=== PATIENT | female | born 1985 | race Caucasian/White ===

== ENCOUNTER 2020-06-04 12:10 | Outpatient (REF) | payer OTHER, SELFPAY ==
[2020-06-04 12:28] LABS: COVID-19 Test Negative (Negative)
== END 2020-06-04 12:11 | disposition home or self-care (01) ==
LOC: HO.EMPCOV 12:10
PROVIDERS: Visit Provider Internal Medicine
DX: Z20.822 Contact with and (suspected) exposure to COVID-19 (principal)
CPT/HCPCS: 36415; 87635; C9803

== ENCOUNTER 2020-06-07 13:24 | Outpatient (REF) | payer OTHER, SELFPAY ==
[2020-06-07 13:45] LABS: COVID-19 Test Negative (Negative)
== END 2020-06-07 13:25 | disposition home or self-care (01) ==
LOC: HO.EMPCOV 13:24
PROVIDERS: Visit Provider Internal Medicine
DX: Z20.822 Contact with and (suspected) exposure to COVID-19 (principal)
CPT/HCPCS: 36415; 87635; C9803

== ENCOUNTER → 2022-02-15 09:16 | Outpatient (RCR) | payer OTHER, SELFPAY ==
[2020-03-10 07:31] LABS: COVID-19 Test Negative (Negative)
[2020-03-17 07:32] LABS: COVID-19 Test Negative (Negative); IDNOW Serial# 55D5AD1C
[2020-03-22 08:29] LABS: COVID-19 Test Negative (Negative)
[2020-03-30 07:43] LABS: COVID-19 Test Negative (Negative)
[2020-04-06 07:33] LABS: COVID-19 Test Negative (Negative); IDNOW Serial# 55D5AD1C
[2020-04-16 13:19] LABS: SARS-COV-2 PCR UMBRL Not Detected
[2020-04-22 12:30] LABS: SARS-COV-2 PCR UMBRL Not Detected
[2020-04-29 10:27] LABS: SARS-COV-2 PCR UMBRL Not Detected
[2020-05-06 09:42] LABS: SARS-COV-2 PCR UMBRL Not Detected
[2020-05-14 15:29] LABS: SARS-COV-2 PCR UMBRL NEGATIVE
[2020-05-20 08:25] LABS: SARS-COV-2 PCR UMBRL NEGATIVE
== END | disposition home or self-care (01) ==
LOC: HO.EMPCOV 03-10 07:11
PROVIDERS: Visit Provider Internal Medicine
DX: Z20.828 Contact with and (suspected) exposure to other viral communicable diseases (principal)
CPT/HCPCS: 36415; 87635; C9803; U0003